=== PATIENT | female | born 1985 | race African-American/Black ===

== ENCOUNTER 2024-09-08 05:12 | Inpatient (IN) | payer OTHER ==
[2024-09-08] MEDS: ELECTROLYTE-148 SOLN 500 ML IV ONE (05:45)
[2024-09-08 05:58] VITALS: BMI 31.1
[2024-09-08] MEDS: ELECTROLYTE-148 SOLN 1,000 ML IV SCH (06:15)
[2024-09-08] MEDS: CITRIC ACID/SODIUM CITRATE 30 ML UNIT-DOSE CUP PO ONE (07:45)
[2024-09-08] MEDS ORDERED: FENTANYL CITRATE/PF 50 MCG/ML VIAL ONE (08:01)
[2024-09-08] MEDS ORDERED: morphine SULFATE/PF 1 MG/2 ML (2cc Syringe - QUVA) ONE (08:01)
[2024-09-08] MEDS: METHYLERGONOVINE MALEATE 0.2 MG/1 ML AMP IM ONE (08:49)
[2024-09-08] MEDS ORDERED: ACETAMINOPHEN 325 MG TABLET (FP) PO PRN (10:10)
[2024-09-08] MEDS ORDERED: METHYLERGONOVINE MALEATE 0.2 MG/1 ML AMP IM PRN (10:10)
[2024-09-08] MEDS ORDERED: OXYTOCIN 20 UNITS in 0.9% NS 20 UNIT/1,000 ML INFUS.BAG IV ONE (11:50)
[2024-09-08] MEDS ORDERED: IBUPROFEN 800 MG/8 ML IJ IVPB ONE (11:50)
[2024-09-08] MEDS: OXYTOCIN 20 UNITS in 0.9% NS 20 UNIT/1,000 ML INFUS.BAG IV SCH (11:55)
[2024-09-08] MEDS: IBUPROFEN 800 MG/8 ML IJ IVPB PRN (11:58)
[2024-09-08] MEDS: ACETAMINOPHEN 1000 MG/100 ML BAG IVPB PRN (16:35)
[2024-09-08] MEDS: WITCH HAZEL 50% (TUCKS) 40 PAD/JAR PAD TP PRN (21:17)
[2024-09-08] MEDS ORDERED: oxyCODONE HCL 5 MG TABLET PO PRN ×2 (22:10)
[2024-09-08] MEDS: SIMETHICONE 80 MG TAB.CHEW (FP) PO PRN (22:31)
[2024-09-08] MEDS: IBUPROFEN 600 MG TABLET (FP) PO PRN (22:32)
[2024-09-08] MEDS: SENNOSIDES/DOCUSATE COMBO (SENNA PLUS) TABLET (UD) PO PRN (22:32)
[2024-09-08] MEDS: FERROUS SO4 325 MG TABLET (FP) PO SCH (22:32)
[2024-09-09 08:01] LABS: ABSOLUTE IMMATURE GRANULOCYTES 0.05 x10^3/uL (0.0-0.031); BASOPHILS # 0.03 x10^3/uL (0.01-0.08); EOSINOPHIL % 0.3 % (0.7-5.8); EOSINOPHILS # 0.04 x10^3/uL (0.04-0.36); HEMATOCRIT 28.2 % (34.1-44.9); HEMOGLOBIN 9.1 g/dL (11.2-15.7); MCHC 32.3 g/dl (32.2-35.5); MEAN CELL VOLUME 88.1 fl (79.4-94.8); MEAN PLT VOLUME 10.1 fl (9.4-12.3); MONOCYTE # 1.06 x10^3/uL (0.24-0.86); MONOCYTE % 8.9 % (4.7-12.5); PLATELET COUNT 204 x10^3/uL (182-369); RDW 14.7 % (12.1-16.8)
[2024-09-09] MEDS ORDERED: DIPHTH,PERTUSS(ACELL),TET 0.5 ML DISP.SYRIN IM ONE (10:00)
[2024-09-09] MEDS ORDERED: BISACODYL 10 MG SUPP.RECT RC PRN (10:10)
[2024-09-09] MEDS: PRENATAL VITAMINS W/ FOLIC ACID TABLET (FP) PO SCH (10:11)
[2024-09-10] MEDS: DIPHTH,PERTUSS(ACELL),TET 0.5 ML DISP.SYRIN IM ONE (09:53)
[2024-09-10 22:16] VITALS: RESP 18
[2024-09-11 09:10] VITALS: BP 119/77; PULSE 100; TEMP 98
== END 2024-09-11 11:32 | disposition home or self-care (01) | DRG 787 ==
LOC: JLDR 05:12 → J3W 12:10
PROVIDERS: ADMIT Obstetrics & Gynecology; ATTEND Obstetrics & Gynecology
PROC: 10D00Z1 Extraction of Products of Conception, Low, Open Approach (ICD-10-PCS; principal; 2024-09-08)
DX: O32.2XX0 Maternal care for transverse and oblique lie, not applicable or unspecified (principal); O44.23 Partial placenta previa NOS or without hemorrhage, third trimester; Z3A.39 39 weeks gestation of pregnancy; Z37.0 Single live birth
CPT/HCPCS: 36415; 36430; 85025; 86922; 88307-TC; 90715; 94010; J0131; P9038; P9058